=== PATIENT | female | born 1945 | race American Indian/Alaskan Native ===

== ENCOUNTER 2019-07-11 18:08 | Inpatient (IN) | payer MEDICARE ==
--- NOTE | 2019-07-11 19:40 | Emergency Department Report ---
ED General Adult HPI - General Chief complaint: Medical Clearance Stated complaint: DIALYSIS FAILED/DOC SENT Time Seen by Provider: 07/11/19 19:39 Source: patient Mode of arrival: Ambulatory Limitations: No Limitations - History of Present Illness Initial comments: 73 y.o. female with a history of end-stage renal disease presents with complaint that her dialysis fistula is not working. Patient was seen in dialysis Center and Dr. Castillo with nephrology was consulted. Dr. Hernandez with Vascular Surgery also evaluated the patient and patient will have surgical procedure to improve her dialysis access tomorrow morning. Patient states she had 2-1/2 hours of dialysis prior to her fistula not working. Patient currently has no chest pain or shortness of breath. Patient denies any nausea or vomiting. - Related Data Home Medications Medication Instructions Recorded Confirmed Last Taken Acetaminophen [Shake That Ache] 500 mg PO PRN 03/13/16 03/13/16 Unknown Aspirin [Adult Low Dose Aspirin EC] 81 mg PO 03/13/16 Unknown AtorvaSTATin [Lipitor] 10 mg PO HS 03/13/16 03/13/16 Unknown Carvedilol [Coreg] 25 mg PO BID 03/13/16 03/13/16 Unknown Cholecalciferol (Vitamin D3) 3,000 unit PO DAILY 03/13/16 03/13/16 Unknown [Vitamin D3] Clopidogrel [Plavix] 75 mg PO QDAY 03/13/16 03/13/16 Unknown Folic Acid [Folvite] 1 mg PO DAILY 03/13/16 03/13/16 Unknown Insulin Glargine,Hum.rec.anlog 20 units SUB-Q HS 03/13/16 03/13/16 Unknown [Lantus Solostar] Insulin Lispro [Humalog Kwikpen] 14 units SUB-Q ACHS 03/13/16 03/13/16 Unknown Multivit-Min/Iron Fum/Folic AC 1 PO DAILY 03/13/16 Unknown [Mlxjo-Zhzwynv-Tayrhtav Tablet] Previous Rx's Medication Instructions Recorded Last Taken Type amLODIPine [Norvasc] 5 mg PO DAILY #30 tab 03/15/16 Unknown Rx Allergies Allergy/AdvReac Type Severity Reaction Status Date / Time codeine AdvReac Hives Verified 03/12/16 21:45 ED Review of Systems ROS: Stated complaint: DIALYSIS FAILED/DOC SENT Other details as noted in HPI Constitutional: denies: chills, fever Eyes: denies: eye pain, eye discharge, vision change ENT: denies: ear pain, throat pain Respiratory: denies: cough, shortness of breath, wheezing Cardiovascular: denies: chest pain, palpitations Endocrine: no symptoms reported Gastrointestinal: denies: abdominal pain, nausea, diarrhea Genitourinary: denies: urgency, dysuria, discharge Musculoskeletal: denies: back pain, joint swelling, arthralgia Skin: denies: rash, lesions Neurological: denies: headache, weakness, paresthesias Psychiatric: denies: anxiety, depression Hematological/Lymphatic: denies: easy bleeding, easy bruising ED Past Medical Hx - Past Medical History Hx Hypertension: Yes Hx CVA: Yes (x 3) Hx Diabetes: Yes Hx Arthritis: Yes - Surgical History Past Surgical History?: Yes Additional Surgical History: hysterectomy, brain surgery for brain bleed - Social History Smoking Status: Never Smoker - Medications Home Medications: Home Medications Medication Instructions Recorded Confirmed Last Taken Type Acetaminophen [Shake That Ache] 500 mg PO PRN 03/13/16 03/13/16 Unknown History Aspirin [Adult Low Dose Aspirin EC] 81 mg PO 03/13/16 Unknown History AtorvaSTATin [Lipitor] 10 mg PO HS 03/13/16 03/13/16 Unknown History Carvedilol [Coreg] 25 mg PO BID 03/13/16 03/13/16 Unknown History Cholecalciferol (Vitamin D3) 3,000 unit PO DAILY 03/13/16 03/13/16 Unknown History [Vitamin D3] Clopidogrel [Plavix] 75 mg PO QDAY 03/13/16 03/13/16 Unknown History Folic Acid [Folvite] 1 mg PO DAILY 03/13/16 03/13/16 Unknown History Insulin Glargine,Hum.rec.anlog 20 units SUB-Q HS 03/13/16 03/13/16 Unknown History [Lantus Solostar] Insulin Lispro [Humalog Kwikpen] 14 units SUB-Q ACHS 03/13/16 03/13/16 Unknown History Multivit-Min/Iron Fum/Folic AC 1 PO DAILY 03/13/16 Unknown History [Ynvhr-Lwzjmav-Rielkidz Tablet] amLODIPine [Norvasc] 5 mg PO DAILY #30 tab 03/15/16 Unknown Rx ED Physical Exam - General Limitations: No Limitations General appearance: alert, in no apparent distress - Head Head exam: Present: atraumatic, normocephalic - Eye Eye exam: Present: normal appearance - ENT ENT exam: Present: mucous membranes moist - Neck Neck exam: Present: normal inspection - Respiratory Respiratory exam: Present: normal lung sounds bilaterally. Absent: respiratory distress - Cardiovascular Cardiovascular Exam: Present: regular rate, normal rhythm, other (auscultated thrill in left upper extremity). Absent: systolic murmur, diastolic murmur, rubs, gallop - GI/Abdominal GI/Abdominal exam: Present: soft, normal bowel sounds - Extremities Exam Extremities exam: Present: normal inspection - Back Exam Back exam: Present: normal inspection - Neurological Exam Neurological exam: Present: alert, oriented X3 - Psychiatric Psychiatric exam: Present: normal affect, normal mood - Skin Skin exam: Present: warm, dry, intact, normal color. Absent: rash ED Course Vital Signs 07/11/19 07/11/19 07/11/19 18:10 19:42 20:00 Temperature 98.8 F 97.7 F Pulse Rate 83 73 73 Respiratory 18 15 18 Rate Blood Pressure 91/50 153/79 Blood Pressure 156/71 [Right] O2 Sat by Pulse 99 99 99 Oximetry 07/11/19 20:30 Temperature Pulse Rate 72 Respiratory 16 Rate Blood Pressure 153/79 Blood Pressure [Right] O2 Sat by Pulse 99 Oximetry ED Medical Decision Making - Lab Data Result diagrams: 07/11/19 20:29 07/11/19 20:29 - Medical Decision Making Patient to be admitted to the hospital service with consultation from Dr. Hernandez with Vascular surgery and with nephrology. patient currently is asymptomatic. - Differential Diagnosis hyperkalemia; fistula malfunction; anemia; electrolyte abnormality Critical care attestation.: If time is entered above; I have spent that time in minutes in the direct care of this critically ill patient, excluding procedure time. ED Disposition Clinical Impression: Dialysis AV fistula malfunction, ESRD (end stage renal disease), Hypertension Disposition: - TO HOME OR SELFCARE Is pt being admited?: Yes Does the pt Need Aspirin: No Condition: Stable Instructions: Hypertension (ED) Time of Disposition: 21:46 Print Language: POLISH
[2019-07-11 20:55] LABS: Hematocrit 34.6 % (30.3-42.9); Hemoglobin 11.4 gm/dl (10.1-14.3); Mean Corpuscular HGB Conc 33 % (30-34); Mean Corpuscular Volume 90 fl (79-97); Platelet Count 199 K/mm3 (140-440); Red Blood Count 3.83 M/mm3 (3.65-5.03); Red Cell Distribution Width 15.4 % (13.2-15.2)
[2019-07-11 21:04] LABS: INR 1.03 (0.87-1.13)
[2019-07-11 21:05] LABS: Partial Thromboplastin Time 31.6 Sec. (24.2-36.6)
[2019-07-11 21:09] LABS: Albumin 3.1 g/dL (3.9-5); Calcium 8.9 mg/dL (8.4-10.2)
--- NOTE | 2019-07-11 21:35 | Event Note ---
Date: 07/11/19 patient with malfunctioning left arm av access plan for left arm fistulogram tomorrow PRAVEEN GONZALEZ
[2019-07-11] MEDS ORDERED: ZOFRAN IV PRN (21:50)
[2019-07-11] MEDS ORDERED: TYLENOL PO PRN (21:50)
[2019-07-11] MEDS ORDERED: SODIUM CHLORIDE FLUSH SYRINGE 10 ML IV PRN (21:50)
--- NOTE | 2019-07-11 21:59 | History and Physical Report ---
History of Present Illness Date of examination: 07/11/19 Date of admission: 07/11/19 Chief complaint: HD fistula disfunction History of present illness: Pt is a 73 year old female with PMHx of ESRD on HD,CVA x3, DM type 2, HTN, HDL, OA who presents to the ER with complaint of HD fistula malfunction. Pt states that she went to hemodialysis today at the Center, she was unable to complete her treatment because her fistula was not working, pt states that she saw the services clerk (Dr Castillo) who recommended that she comes to the ER for evaluation with the vascular surgery (Dr. Hernandez) for fistula malfunction. Pt denies any acute symptoms, she denies chest pain, denies SOB, denies palpitation, denies lower extremities swelling, denies headache or dizziness. Pt was seen in the ER and admitted for graft revascularization by vascular surgery. Past History Past Medical History: diabetes, hypertension, hyperlipidemia, stroke (x3), other (arthitis) Past Surgical History: hysterectomy, Other (brain surgery) Social history: no significant social history Family history: no significant family history Medications and Allergies Allergies Allergy/AdvReac Type Severity Reaction Status Date / Time codeine AdvReac Hives Verified 03/12/16 21:45 Home Medications Medication Instructions Recorded Confirmed Last Taken Type Acetaminophen [Shake That Ache] 500 mg PO Q6H PRN 03/13/16 07/12/19 Unknown History Aspirin [Adult Low Dose Aspirin EC] 81 mg PO QAM 03/13/16 07/12/19 Unknown History AtorvaSTATin [Lipitor] 10 mg PO HS 03/13/16 07/12/19 Unknown History Carvedilol [Coreg] 25 mg PO BID 03/13/16 07/12/19 Unknown History Insulin Glargine,Hum.rec.anlog 7 units SUB-Q HS 03/13/16 07/12/19 Unknown History [Lantus Solostar] Hydralazine HCl 50 mg PO QPM 07/12/19 07/12/19 Unknown History Lisinopril [Zestril TAB] 10 mg PO QDAY 07/12/19 07/12/19 Unknown History Promethazine [Phenergan] 25 mg PO Q8HR PRN 07/12/19 07/12/19 Unknown History hydrOXYzine HCL [Atarax] 25 mg PO Q6HR PRN 07/12/19 07/12/19 Unknown History Exam - Constitutional Vitals: Temp Pulse Resp BP Pulse Ox 97.7 F 73 16 151/88 100 07/11/19 19:42 07/11/19 21:30 07/11/19 21:30 07/11/19 21:30 07/11/19 21:30 General appearance: Present: no acute distress - EENT Eyes: Present: EOM intact ENT: hearing intact - Neck Neck: Present: normal ROM - Respiratory Respiratory: bilateral: CTA - Cardiovascular Rhythm: regular - Extremities Extremities: no ischemia Peripheral Pulses: within normal limits - Abdominal General gastrointestinal: Present: deferred Female genitourinary: Present: deferred - Rectal Rectal Exam: deferred - Integumentary Integumentary: Present: warm, dry - Musculoskeletal Musculoskeletal: strength equal bilaterally - Psychiatric Psychiatric: cooperative - Neurologic Neurologic: moves all extremities Results - Labs CBC & Chem 7: 07/11/19 20:29 07/11/19 20:29 Labs: Laboratory Last Values WBC 4.3 K/mm3 (4.5-11.0) L 07/11/19 20:29 RBC 3.83 M/mm3 (3.65-5.03) 07/11/19 20:29 Hgb 11.4 gm/dl (10.1-14.3) 07/11/19 20:29 Hct 34.6 % (30.3-42.9) 07/11/19 20:29 MCV 90 fl (79-97) 07/11/19 20:29 MCH 30 pg (28-32) 07/11/19 20:29 MCHC 33 % (30-34) 07/11/19 20:29 RDW 15.4 % (13.2-15.2) H 07/11/19 20:29 Plt Count 199 K/mm3 (140-440) 07/11/19 20:29 PT 13.2 Sec. (12.2-14.9) 07/11/19 20:29 INR 1.03 (0.87-1.13) 07/11/19 20:29 APTT 31.6 Sec. (24.2-36.6) 07/11/19 20:29 Sodium 137 mmol/L (137-145) 07/11/19 20:29 Potassium 4.9 mmol/L (3.6-5.0) 07/11/19 20:29 Chloride 98.0 mmol/L (98-107) 07/11/19 20:29 Carbon Dioxide 25 mmol/L (22-30) 07/11/19 20:29 Anion Gap 19 mmol/L 07/11/19 20:29 BUN 30 mg/dL (7-17) H 07/11/19 20:29 Creatinine 6.0 mg/dL (0.7-1.2) H 07/11/19 20:29 Estimated GFR 8 ml/min 07/11/19 20:29 BUN/Creatinine Ratio 5 % 07/11/19 20:29 Glucose 88 mg/dL (65-100) 07/11/19 20:29 Calcium 8.9 mg/dL (8.4-10.2) 07/11/19 20:29 Total Bilirubin 0.40 mg/dL (0.1-1.2) 07/11/19 20:29 AST 12 units/L (5-40) 07/11/19 20:29 ALT 6 units/L (7-56) L 07/11/19 20:29 Alkaline Phosphatase 72 units/L (35-129) 07/11/19 20:29 Total Protein 6.9 g/dL (6.3-8.2) 07/11/19 20:29 Albumin 3.1 g/dL (3.9-5) L 07/11/19 20:29 Albumin/Globulin Ratio 0.8 % 07/11/19 20:29 Assessment and Plan Assessment and plan: 1. HD malfunction 2. ESRD om HD 3. Anemia (due to CKD) 4. Hyperkalemia 5. HTN 6. DM type 2 7. Hyperlipidemia 8. H/o stroke x 3 9. Ostearthritis Plan: Admit to medtele Monitor electrolytes Consult nephrology for HD management Consult vascular for HD malfunction Accu check ACHS with insulin per sliding scale Keep NPO post MN Resume home meds when able to take PO further plan in am HD most likely after the procedure Advance Directives: Yes Plan of care discussed with patient/family: Yes
[2019-07-11] MEDS ORDERED: HEPARIN SUB-Q SCH (22:00)
[2019-07-11] MEDS: SODIUM CHLORIDE FLUSH SYRINGE 10 ML IV SCH (22:49)
[2019-07-12] MEDS ORDERED: PHENERGAN PO PRN (09:01)
[2019-07-12] MEDS ORDERED: ATARAX PO PRN (09:01)
[2019-07-12] MEDS ORDERED: TYLENOL PO PRN (09:01)
[2019-07-12] MEDS: SODIUM CHLORIDE FLUSH SYRINGE 10 ML IV SCH ×2 (09:20→23:45)
[2019-07-12] MEDS: HALFPRIN EC PO SCH (09:20)
[2019-07-12] MEDS: ZESTRIL PO SCH (09:21)
[2019-07-12] MEDS: COREG PO SCH ×2 (09:21→23:40)
[2019-07-12 11:22] LABS: Hepatitis B Surface Antigen Non-Reactive (Negative); Hepatitis C Virus Antibody Non-Reactive (NonReactive)
[2019-07-12] MEDS ORDERED: HEPARIN/NS 5000 UNIT/500ML(CATH LAB) 1,500 ML IR ONE (11:51)
[2019-07-12] MEDS ORDERED: HEPARIN 10,000 UNITS/10 ML ONE ×2 (11:51→15:41)
[2019-07-12] MEDS ORDERED: XYLOCAINE 2% INFILTRATI ONE (11:51)
[2019-07-12] MEDS ORDERED: NACL 0.9% 500 ML 500 ML ONE (11:52)
[2019-07-12] MEDS ORDERED: AFLURIA QUAD 2019-2020 (3YR UP) IM ONE (12:00)
[2019-07-12] MEDS ORDERED: D50W (25GM) Syringe IV ONE (12:00)
--- NOTE | 2019-07-12 12:02 | Consultation ---
History of Present Illness - History of Present Illness My assessment and plan are as follows End-stage renal disease: Patient will continue with hemodialysis treatment on scheduled as tolerated, monitor dialysis related labs, currently her hemoglobin is 11.4 potassium 4.9B UN 30 creatinine 6.0 calcium is 8.9, she will need hemod ialysis treatment today afterfistulogram Has had issues with fistula not working yesterday during dialysis, patient does need fistulogram subsequent to which she will need to get hemodialysis treatment she is currently being dialyzed at [facility] Anemia and end-stage renal disease: To monitor and follow, erythropoietin as required goal hemoglobin dialysis patients usually occurring 10 and 12, we will follow Secondary hyperparathyroidism: Monitor phosphorus and PTH periodically and adjust binders as needed Diet and nutrition: Fluid restriction 1200 mL per day, high-protein diet may benefit from nutrition consultation , patient is protein intake should be 1.5 g per KG body weight Hypertension and volume continue to monitor, educated about fluid restriction sodium restriction Patient does exhibit good understanding of the renal related issues A long discussion yesterday with patient's daughter over the phone plan of care has been discussed and answered Patient has been adequately counseled and educated regarding all the renal related issues Renal care plan was discussed with patient Prognosis remains guarded at this time We'll continue to follow and make recommendation from renal standpoint She have any questions please feel free to contact me at [phone] Narayan Castillo M.D. [facility], [address] [place] [address]. [place] [address] History of presenting illness 73-year-old female who has recently moved here from [place] and is currently going for dialysis at [facility] where I saw her yesterday, patient's fistula but not usable her venous pressures were markedly elevated for which she was advised to come here to the hospital and I have discussed the case with vascular surgery already for fistulogram and angioplasty possibly subsequent to which patient will receive hemodialysis treatment Past medical history significant for End-stage renal disease Anemia and end-stage renal disease Secondary hyperparathyroidism Current allergies: Codeine Home medication present medication: Reviewed Social history, family history: Reviewed Review of systems: Positive for malfunctioning fistula patient has not had any evaluation of fistula for last 2 years Complex of any shortness of breath chest pain pressure Physical examination: General: No acute distress HEENT: Oral mucosa moist no icterus, no facial swelling Neck: Supple no thyromegaly no lymphadenopathy no JVD Chest: Clear to auscultation no crackles rales or wheezes Heart: Regular rate and rhythm S1-S2 heard no S3-S4 Abdomen: Soft nontender no organomegaly no masses palpable no renal bruit no suprapubic masses no CVA tenderness Dermatology: No skin rashes noted Extremity: Less than 1+ peripheral edema, dry skin no petechial rashes fistula appears to be engorged there is evidence of sharp bruit Musculoskeletal: No joint effusion noted in knee and ankle area Psych: No evidence of agitation and aggression noted Neurological: Alert awake follows commands no tremors no myoclonus Back: No CVA tenderness Past History Past Medical History: diabetes, hypertension, hyperlipidemia, stroke (x3), other (arthitis) Past Surgical History: hysterectomy, Other (brain surgery) Social history: no significant social history Family history: no significant family history Medications and Allergies Allergies Allergy/AdvReac Type Severity Reaction Status Date / Time codeine AdvReac Hives Verified 03/12/16 21:45 Home Medications Medication Instructions Recorded Confirmed Last Taken Type Acetaminophen [Shake That Ache] 500 mg PO Q6H PRN 03/13/16 07/12/19 Unknown History Aspirin [Adult Low Dose Aspirin EC] 81 mg PO QAM 03/13/16 07/12/19 Unknown Hi story AtorvaSTATin [Lipitor] 10 mg PO HS 03/13/16 07/12/19 Unknown History Carvedilol [Coreg] 25 mg PO BID 03/13/16 07/12/19 Unknown History Insulin Glargine,Hum.rec.anlog 7 units SUB-Q HS 03/13/16 07/12/19 Unknown History [Lantus Solostar] Hydralazine HCl 50 mg PO QPM 07/12/19 07/12/19 Unknown History Lisinopril [Zestril TAB] 10 mg PO QDAY 07/12/19 07/12/19 Unknown History Promethazine [Phenergan] 25 mg PO Q8HR PRN 07/12/19 07/12/19 Unknown History hydrOXYzine HCL [Atarax] 25 mg PO Q6HR PRN 07/12/19 07/12/19 Unknown History Active Meds: Active Medications Acetaminophen (Tylenol) 650 mg PO Q4H PRN PRN Reason: Pain MILD(1-3)/Fever >100.5/[place] Acetaminophen (Tylenol) 500 mg PO Q6H PRN PRN Reason: Pain , Severe (7-10) Aspirin (Halfprin Ec) 81 mg PO QAM [facility] Last Admin: 07/12/19 09:20 Dose: 81 mg Documented by: Atorvastatin Calcium (Lipitor) 10 mg PO HS [facility] Carvedilol (Coreg) 25 mg PO BID [facility] Last Admin: 07/12/19 09:21 Dose: 25 mg Documented by: Hydroxyzine HCl (Atarax) 25 mg PO Q6H PRN PRN Reason: Itching Insulin Glargine (Lantus) 7 units SUB-Q QHS [facility] Lisinopril (Zestril) 10 mg PO QDAY [facility] Last Admin: 07/12/19 09:21 Dose: Not Given Documented by: Ondansetron HCl (Zofran) 4 mg IV Q8H PRN PRN Reason: Nausea And Vomiting Promethazine HCl (Phenergan) 25 mg PO Q8H PRN PRN Reason: Nausea Sodium Chloride (Sodium Chloride Flush Syringe 10 Ml) 10 ml IV BID [facility] Last Admin: 07/12/19 09:20 Dose: 10 ml Documented by: Sodium Chloride (Sodium Chloride Flush Syringe 10 Ml) 10 ml IV PRN PRN PRN Reason: LINE FLUSH Exam - Vital Signs Vital signs: Vital Signs Temp Pulse Resp BP Pulse Ox 98.8 F 83 18 91/50 99 07/11/19 18:10 07/11/19 18:10 07/11/19 18:10 07/11/19 18:10 07/11/19 18:10 Results - Lab Results 07/11/19 20:29 07/11/19 20:29 Most recent lab results Calcium 8.9 mg/dL (8.4-10.2) 07/11/19 20:29
[2019-07-12] MEDS ORDERED: VERSED ONE ×2 (12:10→18:19)
[2019-07-12] MEDS ORDERED: SUBLIMAZE ONE (12:11)
--- NOTE | 2019-07-12 12:13 | Discharge Summary ---
Providers - Providers Date of Admission: 07/11/19 21:50 Date of discharge: 07/13/19 Attending physician: HUYEN KATE 07/11/19 21:12 Consult to Physician [CONS] Routine Comment: Consulting Provider: NADER CASTILLO Physician Instructions: Reason For Exam: dialysis 07/11/19 21:50 Consult to Physician [CONS] Routine Comment: Consulting Provider: GAMAL ROSENBERG Physician Instructions: Reason For Exam: HD cath disfuction Primary care physician: MOTOR SCOOTER REPAIRER Hospitalization Condition: Stable Hospital course: Pt is a 73 year old female with PMHx of ESRD on HD,CVA x3, DM type 2, HTN, HDL, OA who presents to the ER with complaint of HD fistula malfunction. Pt states that she went to hemodialysis today at the Center, she was unable to complete her treatment because her fistula was not working, pt states that she saw the head turbine operator (Dr Castillo) who recommended that she comes to the ER for evaluation with the vascular surgery (Dr. Rosenberg) for fistula malfunction. Pt denies any acute symptoms, she denies chest pain, denies SOB, denies palpitation, denies lower extremities swelling, denies headache or dizziness. Pt was seen in the ER and admitted for graft revascularization by vascular surgery. Discharge diagnosis: 1. HD fistulla malfunction 2. ESRD om HD 3. Anemia (due to CKD) 4. Hyperkalemia 5. HTN 6. DM type 2 7. Hyperlipidemia 8. H/o stroke x 3 9. Ostearthritis Disposition: - TO HOME OR SELFCARE Time spent for discharge: 34 minutes Core Measure Documentation - Palliative Care Palliative Care/ Comfort Measures: Not Applicable - Core Measures Any of the following diagnoses?: none Exam - Constitutional Vitals: Temp Pulse Resp BP Pulse Ox 98.5 F 83 18 124/50 97 07/12/19 07:46 07/12/19 09:21 07/12/19 07:46 07/12/19 09:21 07/12/19 07:46 Plan Activity: advance as tolerated Weight Bearing Status: Non-Weight Bearing Diet: renal Special Instructions: restrict fluid intake to (1.2 L per day), record daily weights, record daily BP diary Follow up with: UBALDO RODRIGEZ MD [Primary Care Provider] - 3-5 Days GAMAL ROSENBERG MD [Staff Physician] - 07/30/19 10:15 am
[2019-07-12] MEDS ORDERED: NACL 0.9% 100 ML IV PRN (12:30)
--- NOTE | 2019-07-12 13:10 | Post Operative Note ---
Pre-op diagnosis: ESRD Post-op diagnosis: same Findings: 80% stenosis of the cephalic arch, 70% stenosis of the left innominant vein Procedure: 1. Left arm diagnostic fistulogram and angioplasty 2. Left Innominant Vein Angioplasty 3. Moderate Sedation Anesthesia: MAC, local Surgeon: GAMAL ROSENBERG Estimated blood loss: minimal Pathology: none Condition: stable Disposition: floor
--- NOTE | 2019-07-12 13:50 | Operative Report ---
STAFF SURGEON: Dr. Girish Hernandez. PREOPERATIVE DIAGNOSIS: End-stage renal disease. POSTOPERATIVE DIAGNOSIS: End-stage renal disease. PROCEDURE PERFORMED: 1. Left arm diagnostic fistulogram and angioplasty. 2. Left innominate vein angioplasty. 3. Monitored sedation. COMPLICATIONS: None. ESTIMATED BLOOD LOSS: Less than 10 mL. ANESTHESIA: Local MAC. ANGIOGRAPHIC FINDINGS: The patient had a patent brachiocephalic AV fistula until the cephalic arch in which there was an 80% stenosis noted. There was also a 70% stenosis noted in the left innominate vein. INDICATIONS FOR PROCEDURE: This is a 73-year-old female with end-stage renal disease, on hemodialysis via left arm AV fistula having issues with elevated venous pressures. Therefore, vascular consultation was obtained for evaluation and intervention. The patient was explained the risks, benefits, and alternatives of procedure, and expressed understanding and wished to proceed. DESCRIPTION OF PROCEDURE: After appropriate consent was obtained, the patient was brought back to the microbiology lab analyst, placed on table in supine position with left arm extended. Left arm was prepped and draped in the usual sterile fashion with ChloraPrep. Appropriate timeout was performed indicating correct patient, procedure, and site of procedure. Then, we began the intervention by obtaining percutaneous access of the AV fistula using a micropuncture technique. Once we obtained access, the needle was exchanged for a micropuncture sheath using Seldinger technique. We then proceeded to perform a series of diagnostic imaging of the left upper extremity, which demonstrated the findings noted above. With that, we then proceeded to place a Bentson wire through the posterior stiff J-wire, and through the micropuncture sheath, and exchanged for a 7-Irish sheath. A vertebral catheter was then placed over the J-wire and a J-wire was removed and the Bentson wire was then advanced into the central venous system. The catheter was then advanced to the central venous system and then a series of diagnostic imaging of the central venous system was performed to better characterize the stenosis noted in the innominate vein. With that, the Bentson wire was replaced. We then proceeded to take a 7 x 4 [place] balloon and placed across the lesion in the cephalic arch and insufflated the profile and held for approximately 2 minutes. This was then taken down and removed. The completion angio was performed, which demonstrated less than 20% residual stenosis. We then took a 14 x 40 [place] balloon and placed across the lesion in the innominate vein, again insufflated the profile, and held for approximately 1 minute 45 seconds. This was then taken down and removed. The completion angio was performed demonstrating less than 20% residual stenosis. With this, Bentson wire was removed. The sheath was also removed and digital compression was held at the access site for hemostasis. Once we were satisfied with the hemostasis, appropriate dressing was placed. The patient tolerated the procedure well, emerged from the conscious sedation, and was sent to recovery in stable condition. JOB# [id number] N/NTS
--- NOTE | 2019-07-12 15:09 | Progress Note ---
Assessment and Plan 1. HD fistulla malfunction 2. ESRD om HD 3. Anemia (due to CKD) 4. Hyperkalemia, stable 5. HTN 6. DM type 2 7. Hyperlipidemia 8. H/o stroke x 3 9. Ostearthritis - Patient admitted for dialysis fistula malfunction - Status post fistulogram today with angioplasty but history was still not working for dialysis - Plan to place a PermCath for dialysis for now - Monitor BMP, treat hyperkalemia as needed should improve with dialysis - Continue appropriate home medications -DVT prophylaxis, supportive care - Discussed plan of care with the family members Physical exam: GENERAL: well-developed and well-nourished elderly -[place]ron[place] female lying on bed appeared to be in no discomfort. HEENT: Normocephalic. Atraumatic. No conjunctival congestion or icterus. Patient has moist mucous membranes. NECK: Supple. Trachea midline. CHEST/LUNGS: Clear to auscultated bilaterally, breathing nonlabored. No wheezes crackles or rhonchi. HEART/CARDIOVASCULAR: Regular in rate and rhythm. S1 and S2 positive. ABDOMEN: Abdomen is soft, nontender. Patient has normal bowel sounds. SKIN: There is no rash. Warm and dry. NEURO: No focal motor deficit. Follows command. MUSCULOSKELETAL: No joint effusion or tenderness. EXTRIMITY: No edema, no cyanosis or clubbing. PSYCH: Cooperative. Subjective Date of service: 07/12/19 Interval history: Patient seen and examined. Medical records and medication list reviewed. No acute event overnight noted by the RN. Patient denies any chest pain or difficulty breathing. Patient is tolerating diet. Discussed plan of care at bedside with patient. Objective - Constitutional Vitals: Vital Signs - 12hr 07/12/19 07/12/19 07/12/19 04:20 07:46 09:21 Temperature 98.4 F 98.5 F Pulse Rate 71 83 83 Respiratory 18 18 Rate Blood Pressure 188/78 124/50 124/50 O2 Sat by Pulse 99 97 Oximetry - Labs CBC & Chem 7: 07/11/19 20:29 07/13/19 04:10 Labs: Abnormal lab results 07/11/19 07/11/19 07/12/19 Range/Units 20:29 20:29 11:30 WBC 4.3 L (4.5-11.0) K/mm3 RDW 15.4 H (13.2-15.2) % BUN 30 H (7-17) mg/dL Creatinine 6.0 H (0.7-1.2) mg/dL POC Glucose 69 L (70-105) ALT 6 L (7-56) units/L Albumin 3.1 L (3.9-5) g/dL 07/12/19 Range/Units 12:04 WBC (4.5-11.0) K/mm3 RDW (13.2-15.2) % BUN (7-17) mg/dL Creatinine (0.7-1.2) mg/dL POC Glucose 113 H (70-105) ALT (7-56) units/L Albumin (3.9-5) g/dL
[2019-07-12] MEDS ORDERED: HEPARIN/NS 5000 UNIT/500ML(CATH LAB) 500 ML IR ONE ×2 (15:41→18:20)
[2019-07-12] MEDS ORDERED: XYLOCAINE 1%/ EPI 1:100,000 INFILTRATI ONE (15:41)
[2019-07-12] MEDS ORDERED: ANCEF/STERILE WATER 2 GM/20 ML 0 GM/0 ML SYRINGE IV ONE (15:42)
[2019-07-12] MEDS ORDERED: NACL 0.9% 250ML 0 ML ONE (15:42)
[2019-07-12] MEDS ORDERED: NACL 0.9% 250ML 250 ML ONE (18:20)
[2019-07-12] MEDS: SUBLIMAZE ONE ×2 (18:44→18:53)
[2019-07-12] MEDS: XYLOCAINE 1%/ EPI 1:100,000 INFILTRATI ONE ×2 (18:48→18:51)
[2019-07-12] MEDS: HEPARIN 10,000 UNITS/10 ML ONE ×2 (18:57→18:58)
--- NOTE | 2019-07-12 19:10 | Post Operative Note ---
Pre-op diagnosis: ESRD Post-op diagnosis: same Procedure: Right IJ Permcath Insertion Anesthesia: MAC, local Surgeon: GAMAL ROSENBERG Estimated blood loss: minimal Pathology: none Condition: stable Disposition: floor
--- NOTE | 2019-07-12 19:29 | Operative Report ---
STAFF SURGEON: Dr. Girish Hernandez. PREOPERATIVE DIAGNOSIS: End-stage renal disease. POSTOPERATIVE DIAGNOSIS: End-stage renal disease. PROCEDURE PERFORMED: Right IJ PermCath insertion. COMPLICATIONS: None. ESTIMATED BLOOD LOSS: Less than 10 mL. ANESTHESIA: Local MAC. INDICATIONS FOR PROCEDURE: This is a 73-year-old female with end-stage renal disease who was recently taken to the slabber light for a left arm fistulogram with intervention. The patient was unable to undergo adequate dialysis and therefore, the patient is now returning for a PermCath insertion. The patient was explained the risks, benefits, alternatives of procedure and expressed understanding and wished to proceed. DESCRIPTION OF PROCEDURE: The appropriate consent was obtained. The patient was brought back to the slabber light, placed on table in supine position. The right neck and chest were prepped and draped in the usual sterile fashion with ChloraPrep. Appropriate time-out performed indicating correct patient, procedure, and site of procedure. We then began the intervention by obtaining percutaneous access of the right internal jugular vein using micropuncture technique and ultrasound guidance. Once we obtained access, needle was exchanged for a micropuncture sheath using Seldinger technique, the stiff J-wire was then placed into the inferior vena cava. A stab incision was made on the anterior chest wall and then proceeded to make a subcutaneous tunnel bringing through a 23 cm straight PermCath. The access site was then serially dilated appropriately. Then, a sheath and dilator was placed over the wire into the SVC and the wire and sheath were removed. A catheter was placed through the peel-away sheath with the tip of the catheter at the SVC right atrial junction. Pillow sheath was removed. Both lumens were bled appropriately and were flushed with heparinized saline. Appropriate amount of heparin was placed in each port. Access site was then closed with deep subcutaneous layer with a 3-0 Vicryl and the skin was approximated with 3-0 nylon. The catheter exit site was sutured in place with a 3-0 nylon. Appropriate dressing was placed. The patient tolerated the procedure well emerged from the conscious sedation and was sent to recovery in stable condition. JOB# [id number] VCN/NTS
[2019-07-12] MEDS ORDERED: LANTUS SUB-Q SCH (22:00)
[2019-07-12] MEDS ORDERED: INSULIN GLARGINE HUM REC ANLOG 7 UNIT SUB-Q SCH (22:00)
[2019-07-12] MEDS: NORCO 5/325 PO PRN (23:42)
[2019-07-13 05:40] LABS: Calcium 8.4 mg/dL (8.4-10.2)
[2019-07-13] MEDS: NORCO 5/325 PO PRN ×3 (05:51→15:02)
[2019-07-13] MEDS: SODIUM CHLORIDE FLUSH SYRINGE 10 ML IV SCH (10:31)
[2019-07-13] MEDS: ZESTRIL PO SCH (10:31)
[2019-07-13] MEDS: COREG PO SCH (10:31)
[2019-07-13] MEDS: HALFPRIN EC PO SCH (10:31)
--- NOTE | 2019-07-13 11:21 | Progress Note ---
Subjective Interval history: Patient was seen today for follow-up on multiple renal related issues Events of this hospitalization were noted Interdisciplinary notes were also reviewed Vitals intake output medications were reviewed Past medical history: Reviewed Family, social history: Reviewed Allergies: Reviewed Physical examination General: No acute distress Vitals: Reviewed HEENT: Oral mucosa moist no icterus Neck: Supple no thyromegaly nodular mass or JVD Chest: Clear to auscultation anteriorly Heart: Regular rate and rhythm S1-S2 heard no S3-S4 Abdomen: Soft nontender no suprapubic masses no organomegaly Extremity: Dry skin less than 1+ edema Psych: No evidence of any agitation and aggression noted Derm: No petechial rash Assessment and plan: malfunctioning fistula status post intervention did not work Current dialysis access is a permacath Patient can currently continue with hemodialysis with permacath She will need to follow-up with vascular surgery in outpatient setting Had a long discussion with patient's 2 daughters yesterday at length , discussed about diet and lifestyle, fluid management, sodium restriction, proper access monitoring All renal related issues were discussed with the patient, patient does exhibit good understanding, lab results were also discussed with patient in simple [place] Prognosis: Guarded We'll continue to follow and make recommendation from renal standpoint Objective - Vital Signs Vital signs: Vital Signs - 12hr 07/12/19 07/12/19 07/13/19 23:40 23:59 03:28 Temperature 97.5 F L Pulse Rate 86 73 81 Respiratory 16 Rate Blood Pressure 124/62 Blood Pressure 124/62 [Right] O2 Sat by Pulse Oximetry 07/13/19 07/13/19 07/13/19 05:38 07:32 08:31 Temperature 98.1 F 98.6 F Pulse Rate 112 H 71 74 Respiratory 22 20 Rate Blood Pressure 105/63 106/49 Blood Pressure [Right] O2 Sat by Pulse 97 97 Oximetry - Lab 07/11/19 20:29 07/13/19 04:10 Most recent lab results Calcium 8.4 mg/dL (8.4-10.2) 07/13/19 04:10 Medications & Allergies - Medications Allergies/Adverse Reactions: Allergies codeine Adverse Reaction (Verified 03/12/16 21:45) Hives Home Medications: Home Medications Medication Instructions Recorded Confirmed Last Taken Type Acetaminophen [Shake That Ache] 500 mg PO Q6H PRN 03/13/16 07/12/19 Unknown History Aspirin [Adult Low Dose Aspirin EC] 81 mg PO QAM 03/13/16 07/12/19 Unknown History AtorvaSTATin [Lipitor] 10 mg PO HS 03/13/16 07/12/19 Unknown History Carvedilol [Coreg] 25 mg PO BID 03/13/16 07/12/19 Unknown History Insulin Glargine,Hum.rec.anlog 7 units SUB-Q HS 03/13/16 07/12/19 Unknown History [Lantus Solostar] Hydralazine HCl 50 mg PO QPM 07/12/19 07/12/19 Unknown History Lisinopril [Zestril TAB] 10 mg PO QDAY 07/12/19 07/12/19 Unknown History Promethazine [Phenergan] 25 mg PO Q8HR PRN 07/12/19 07/12/19 Unknown History hydrOXYzine HCL [Atarax] 25 mg PO Q6HR PRN 07/12/19 07/12/19 Unknown History Active Medications: Generic Name Dose Route Start Last Admin Trade Name Freq PRN Reason Stop Dose Admin Acetaminophen 650 mg 07/11/19 21:50 Tylenol PO Q4H PRN Pain MILD(1-3)/Fever >100.5/[place] Acetaminophen 500 mg 07/12/19 09:01 Tylenol PO Q6H PRN Pain , Severe (7-10) Acetaminophen/Hydrocodone Bitart 1 each 07/12/19 23:31 07/13/19 10:31 [place] 5/325 PO 1 each Q4H PRN Administration Pain, Moderate (5-10) Aspirin 81 mg 07/12/19 10:00 07/13/19 10:31 Halfprin Ec PO 81 mg QAM ML Administration Atorvastatin Calcium 10 mg 07/12/19 22:00 07/12/19 23:42 Lipitor PO 10 mg HS ML Administration Carvedilol 25 mg 07/12/19 10:00 07/13/19 10:31 Coreg PO 25 mg BID ML Administration Hydroxyzine HCl 25 mg 07/12/19 09:01 Atarax PO Q6H PRN Itching Sodium Chloride 100 mls @ 999 mls/hr 07/12/19 12:30 Nacl 0.9% IV VERONIKA PRN Hypotension Insulin Glargine 7 units 07/12/19 22:00 07/12/19 23:45 Lantus SUB-Q 7 units QHS ML Administration Lisinopril 10 mg 07/12/19 10:00 07/13/19 10:31 Zestril PO Not Given QDAY ML Ondansetron HCl 4 mg 07/11/19 21:50 07/12/19 20:11 Zofran IV 4 mg Q8H PRN Administration Nausea And Vomiting Promethazine HCl 25 mg 07/12/19 09:01 Phenergan PO Q8H PRN Nausea Sodium Chloride 10 ml 07/11/19 22:00 07/13/19 10:31 Sodium Chloride Flush Syringe 10 Ml IV 10 ml BID ML Administration Sodium Chloride 10 ml 07/11/19 21:50 07/12/19 20:11 Sodium Chloride Flush Syringe 10 Ml IV 10 ml PRN PRN Administration LINE FLUSH
[2019-07-13] MEDS ORDERED: KIONEX PO NR (14:41)
[2019-07-13] MEDS ORDERED: NACL 0.9% 100 ML IV PRN (19:22)
[2019-07-13 21:37] VITALS: BP 165/75
== END 2019-07-13 22:00 | disposition home or self-care (01) | DRG 252 ==
LOC: ED 18:08 → 4A 21:50
PROVIDERS: ADMIT Internal Medicine; ATTEND Internal Medicine
PROC: 05743ZZ Dilation of Left Innominate Vein, Percutaneous Approach (ICD-10-PCS; principal; 2019-07-12)
PROC: 03783ZZ Dilation of Left Brachial Artery, Percutaneous Approach (ICD-10-PCS; 2019-07-12)
PROC: B51W1ZZ Fluoroscopy of Dialysis Shunt/Fistula using Low Osmolar Contrast (ICD-10-PCS; 2019-07-12)
PROC: 0JH63XZ Insertion of Tunneled Vascular Access Device into Chest Subcutaneous Tissue and Fascia, Percutaneous Approach (ICD-10-PCS; 2019-07-12)
PROC: 02HV33Z Insertion of Infusion Device into Superior Vena Cava, Percutaneous Approach (ICD-10-PCS; 2019-07-12)
PROC: 5A1D70Z Performance of Urinary Filtration, Intermittent, Less than 6 Hours Per Day (ICD-10-PCS; 2019-07-12)
PROC: 02HV33Z Insertion of Infusion Device into Superior Vena Cava, Percutaneous Approach (ICD-10-PCS; 2019-07-12)
PROC: B548ZZA Ultrasonography of Superior Vena Cava, Guidance (ICD-10-PCS; 2019-07-12)
PROC: 5A1D70Z Performance of Urinary Filtration, Intermittent, Less than 6 Hours Per Day (ICD-10-PCS; 2019-07-13)
DX: T82.590A Other mechanical complication of surgically created arteriovenous fistula, initial encounter (principal); N18.6 End stage renal disease; I12.0 Hypertensive chronic kidney disease with stage 5 chronic kidney disease or end stage renal disease; N25.81 Secondary hyperparathyroidism of renal origin; E11.22 Type 2 diabetes mellitus with diabetic chronic kidney disease; M19.90 Unspecified osteoarthritis, unspecified site; D63.1 Anemia in chronic kidney disease; E87.5 Hyperkalemia; E78.5 Hyperlipidemia, unspecified; Y83.2 Surgical operation with anastomosis, bypass or graft as the cause of abnormal reaction of the patient, or of later complication, without mention of misadventure at the time of the procedure; Y92.89 Other specified places as the place of occurrence of the external cause; Z99.2 Dependence on renal dialysis; Z88.5 Allergy status to narcotic agent; Z86.73 Personal history of transient ischemic attack (TIA), and cerebral infarction without residual deficits; Z90.710 Acquired absence of both cervix and uterus; Z79.82 Long term (current) use of aspirin; Z79.899 Other long term (current) drug therapy
CPT/HCPCS: 36415; 36558; 36902; 76937; 77001; 80048; 80053; 80074; 82962; 84132; 85027; 85610; 85730; 90686; 96374; 96375; G0378; A9270-GY; C1725; C1750; C1751; C1769; C1894; J0690; J1644; J1815; J2250; J2405; J3010; J7040; J7050; Q9967

== ENCOUNTER 2019-08-26 07:54 | Day surgery (SDC) | payer BC, MEDICARE ==
[~2019-08-26 07:54] MED LIST: ceFAZolin/STERILE WATER 2 GM/20 ML SYRINGE IV NR
[2019-08-26] MEDS ORDERED: SODIUM CHLORIDE 0.9% 1000 ML 1,000 ML IV SCH (09:00)
--- NOTE | 2019-08-26 09:24 | Anesthesia Consultation ---
Anesthesia Consult and Med Hx Date of service: 08/26/19 - Airway Anesthetic Teeth Evaluation: Edentulous ROM Head & Neck: Adequate Mental/Hyoid Distance: Adequate Mallampati Class: Class II Intubation Access Assessment: Good - Pre-Operative Health Status ASA Pre-Surgery Classification: ASA3 Proposed Anesthetic Plan: General - Pulmonary Hx Smoking: No Hx Sleep Apnea: No (ZEV PRE SCREEN LOW RISK) - Cardiovascular System Hx Hypertension: Yes (SINCE AGE 21 YRS OLD) Hx Coronary Artery Disease: Yes (Stents) Hx Heart Attack/AMI: No Hx Angina: No - Central Nervous System Hx Neuromuscular Disorder: Yes (Neuropathy) CVA: Yes (X 3- LAST ONE 2004- RT SIDED WEAKNESS) Hx Psychiatric Problems: Yes (ptsd) - Endocrine Hx End Stage Renal Disease: Yes (Last HD Monday) Hx Non-Insulin Dependent Diabetes: Yes - Hematic Hx Anemia: Yes - Other Systems Hx Cancer: No
[2019-08-26] MEDS ORDERED: fentaNYL 100 MCG/2 ML INJ IV PRN (09:25)
[2019-08-26] MEDS ORDERED: ONDANSETRON 4 MG/2 ML INJ IV PRN (09:25)
--- NOTE | 2019-08-26 09:25 | Anesthesia Day of Surgery ---
Anesthesia Day of Surgery - Day of Surgery Patient Examined: Yes Patient H&P Reviewed: Yes Patient is NPO: Yes Beta Blockers: Yes
[2019-08-26] MEDS ORDERED: MIDAZOLAM 2 MG/2 ML INJ IV SCH (09:30)
[2019-08-26] MEDS ORDERED: MIDAZOLAM 2 MG/2 ML INJ ONE (09:59)
[2019-08-26 10:13] LABS: Eosinophils # (Auto) 0.2 K/mm3 (0.0-0.4); Eosinophils % (Auto) 3.9 % (0.0-4.3); Hematocrit 35.6 % (30.3-42.9); Hemoglobin 11.6 gm/dl (10.1-14.3); Lymphocytes # (Auto) 0.9 K/mm3 (1.2-5.4); Lymphocytes % (Auto) 20.1 % (13.4-35.0); Mean Corpuscular HGB Conc 33 % (30-34); Mean Corpuscular Volume 94 fl (79-97); Monocytes # (Auto) 0.5 K/mm3 (0.0-0.8); Monocytes % (Auto) 11.5 % (0.0-7.3); Platelet Count 216 K/mm3 (140-440); Red Blood Count 3.79 M/mm3 (3.65-5.03)
[2019-08-26] MEDS ORDERED: HEPARIN 10,000 UNITS/10 ML VIAL ONE (10:20)
[2019-08-26] MEDS ORDERED: SODIUM CHLORIDE 0.9% 250ML 250 ML ONE (10:20)
[2019-08-26] MEDS ORDERED: GELATIN SPONGE SIZE 100 TP ONE (10:20)
[2019-08-26] MEDS ORDERED: THROMBIN (RECOMBINANT) 5,000 UNIT VIAL TP ONE (10:22)
[2019-08-26 10:26] LABS: Calcium 8.5 mg/dL (8.4-10.2)
[2019-08-26] MEDS ORDERED: PROPOFOL 200 MG/20 ML VIAL IV ONE (10:32)
[2019-08-26] MEDS ORDERED: fentaNYL 100 MCG/2 ML INJ ONE (10:32)
[2019-08-26] MEDS ORDERED: LIDOCAINE MPF (2%) 20 MG/1 ML VIAL 5 ML ONE (10:33)
[2019-08-26] MEDS ORDERED: HEPARIN 10,000 UNIT/1 ML VIAL ONE (11:19)
[2019-08-26 12:56] VITALS: BP 176/86
== END 2019-08-26 11:40 | disposition home or self-care (01) ==
LOC: OR 07:54
PROVIDERS: ATTEND Surgery Vascular Surgery
DX: T82.590A Other mechanical complication of surgically created arteriovenous fistula, initial encounter (principal); I12.0 Hypertensive chronic kidney disease with stage 5 chronic kidney disease or end stage renal disease; N18.6 End stage renal disease; E11.22 Type 2 diabetes mellitus with diabetic chronic kidney disease; E11.65 Type 2 diabetes mellitus with hyperglycemia; G62.9 Polyneuropathy, unspecified; E78.00 Pure hypercholesterolemia, unspecified; I25.10 Atherosclerotic heart disease of native coronary artery without angina pectoris; Z53.8 Procedure and treatment not carried out for other reasons; Z79.899 Other long term (current) drug therapy; Z88.8 Allergy status to other drugs, medicaments and biological substances; Z79.82 Long term (current) use of aspirin; Z98.42 Cataract extraction status, left eye; Z95.5 Presence of coronary angioplasty implant and graft; Z86.73 Personal history of transient ischemic attack (TIA), and cerebral infarction without residual deficits; Y83.9 Surgical procedure, unspecified as the cause of abnormal reaction of the patient, or of later complication, without mention of misadventure at the time of the procedure
CPT/HCPCS: 36415; 80048; 82803; 82962; 85025; A4649; J1644; J2250; J2704; J3010; J7030; J7050; J0690

== ENCOUNTER 2019-08-30 08:08 | Day surgery (SDC) | payer BC, MEDICARE ==
[2019-08-30] MEDS ORDERED: SODIUM CHLORIDE 0.9% 1000 ML 1,000 ML ONE (09:09)
[2019-08-30] MEDS ORDERED: SODIUM CHLORIDE 0.9% 1000 ML 1,000 ML IV SCH (09:15)
--- NOTE | 2019-08-30 09:44 | Anesthesia Day of Surgery ---
Anesthesia Day of Surgery - Day of Surgery Patient Examined: Yes Patient H&P Reviewed: Yes Patient is NPO: Yes
[2019-08-30] MEDS ORDERED: PROTAMINE SULFATE 50 MG/5 ML INJ ONE (12:26)
[2019-08-30] MEDS ORDERED: HEPARIN 10,000 UNITS/10 ML VIAL ONE (12:27)
[2019-08-30] MEDS ORDERED: SODIUM CHLORIDE 0.9% 250ML 250 ML ONE (12:27)
[2019-08-30] MEDS ORDERED: THROMBIN (RECOMBINANT) 5,000 UNIT VIAL TP ONE ×2 (12:28→13:34)
[2019-08-30] MEDS ORDERED: GELATIN SPONGE SIZE 100 TP ONE (12:28)
[2019-08-30] MEDS ORDERED: fentaNYL 100 MCG/2 ML INJ ONE ×2 (12:42→14:57)
[2019-08-30] MEDS ORDERED: PROPOFOL 200 MG/20 ML VIAL IV ONE (12:42)
[2019-08-30] MEDS ORDERED: LIDOCAINE MPF (2%) 20 MG/1 ML VIAL 5 ML ONE (12:42)
[2019-08-30] MEDS ORDERED: dexAMETHasone 20 MG/5 ML VIAL ONE (13:00)
[2019-08-30] MEDS ORDERED: HEPARIN 10,000 UNITS/10 ML VIAL IR ONE (13:30)
[2019-08-30] MEDS ORDERED: SODIUM CHLORIDE 0.9% IRR 1,500 ML BOTTLE IR ONE ×2 (13:30→13:33)
--- NOTE | 2019-08-30 14:40 | Post Operative Note ---
Pre-op diagnosis: ESRD Post-op diagnosis: same Procedure: 1. Left Arm AV Graft Insertion 2. Left Arm AV Fistula Ligation Anesthesia: GETA Surgeon: GAMAL ROSENBERG Estimated blood loss: other (25ml) Pathology: none Condition: stable Disposition: PACU
[2019-08-30] MEDS ORDERED: oxyCODONE /ACETAMINOPHEN 5-325MG TAB PO PRN (14:41)
--- NOTE | 2019-08-30 14:43 | Short Stay Summary ---
Short Stay Documentation Date of service: 08/30/19 - History Principal diagnosis: ESRD Past Medical History: ESRD - Allergies and Medications Current Medications: Allergies codeine Adverse Reaction (Verified 03/12/16 21:45) Hives Home Medications Medication Instructions Recorded Confirmed Last Taken Type Acetaminophen [Shake That Ache] 500 mg PO Q6H PRN 03/13/16 08/30/19 08/29/19 09:00 History Aspirin [Adult Low Dose Aspirin EC] 81 mg PO QAM 03/13/16 08/28/19 08/23/19 08:00 History Lisinopril [Zestril TAB] 10 mg PO QDAY 07/12/19 08/30/19 08/30/19 06:00 History Promethazine [Phenergan] 25 mg PO Q8HR PRN 07/12/19 08/28/19 08/25/19 History Active Medications Cefazolin Sodium (Ancef/Sterile Water 2 Gm/20 Ml) 2 gm IV PREOP NR Stop: 08/30/19 23:00 Sodium Chloride (Nacl 0.9% 1000 Ml) 1,000 mls @ 42 mls/hr IV DIRECT ML Last Admin: 08/30/19 09:45 Dose: 42 mls/hr Documented by: - Physical exam General appearance: no acute distress Extremities: no ischemia - Hospital course Hospital course: the patient was taken to the operating room and had a left arm av graft insertion performed. please refer to the operative note concerning details of the procedure. the patient tolerated the procedure well and was discharged home in stable condition. - Disposition Condition at discharge: Stable Disposition: [id number]-01 TO HOME OR SELFCARE - Discharge Diagnoses (1) ESRD (end stage renal disease) on dialysis Status: Acute Short Stay Discharge Plan Follow up with: RACHEL FANG MD [Primary Care Provider] - 7 Days
[2019-08-30] MEDS: fentaNYL 100 MCG/2 ML INJ IV PRN ×4 (14:50→15:45)
[2019-08-30] MEDS ORDERED: ONDANSETRON 4 MG/2 ML INJ ONE (15:46)
[2019-08-30] MEDS ORDERED: ONDANSETRON 4 MG/2 ML INJ IV PRN (15:51)
[2019-08-30] MEDS ORDERED: HEPARIN 10,000 UNIT/1 ML VIAL IV ONE (16:16)
--- NOTE | 2019-08-30 16:21 | Operative Report ---
STAFF SURGEON: Dr. Girish Hernandez. PREOPERATIVE DIAGNOSIS: End-stage renal disease. POSTOPERATIVE DIAGNOSIS: End-stage renal disease. PROCEDURE PERFORMED: 1. Left arm AV graft insertion. 2. Left arm AV fistula ligation. COMPLICATIONS: None. ESTIMATED BLOOD LOSS: 25 mL. ANESTHESIA: General. INDICATIONS FOR PROCEDURE: This is a 73-year-old female with end-stage renal disease, on hemodialysis, currently through a right IJ PermCath due to a malfunctioning left arm AV fistula despite multiple attempts at salvage. Therefore, it was felt that the patient would benefit from a new access in the left upper extremity. The patient was explained the risks, benefits, and alternatives of procedure, expressed understanding and wished to proceed. DESCRIPTION OF PROCEDURE: After appropriate consent was obtained, the patient was brought back to the operating room and placed on the operating table in supine position with left arm extended. The patient was given appropriate medication for general anesthesia and LMA placed without difficulty. The left arm was prepped and draped in the sterile fashion with ChloraPrep. Appropriate preoperative antibiotics were administered. Appropriate timeout was performed indicating correct patient, procedure, and site of the procedure. Then, we began the operation by making a longitudinal incision near the antecubital fossa. This was carried through subcutaneous tissue with a combination of blunt dissection and electrocautery. Dissection was continued through the bicipital aponeurosis, allowed to expose the brachial artery at this level, which was found to be suitable for arterial inflow and was mobilized for appropriate distance, both proximally and distally, and proceeded to make a transverse incision near the axilla. This was carried through subcutaneous tissue with a combination of blunt dissection and electrocautery. Dissection was continued through the aponeurosis overlying the axillary and neurovascular bundle. The axillary vein was identified and found to be suitable for venous outflow, was mobilized for appropriate distance both proximally and distally. We then proceeded to create a subcutaneous tunnel between the two incision sites bringing through a 4-7 mm Propaten graft. The patient was given 5000 units of unfractionated heparin. After appropriate time elapsed, the graft was appropriately spatulated. Vascular clamps were placed on the brachial artery, both proximally and distally. Longitudinal arteriotomy was made with the 11 blade and extended with Burton scissors. An end-to-side anastomosis was then performed with a running 6-0 Prolene suture. Once complete, flow was established through the graft, we had a nice pulsatile flow. I then proceeded to cut the graft to appropriate length. Vascular clamps were then placed on the axillary vein, both proximally and distally. Longitudinal venotomy was made with a #11 blade and extended with Burton scissors and I then proceeded to perform an end-to-side anastomosis with a running 5-0 Prolene suture. Once complete, flow was reestablished through the graft with a nice palpable thrill. The patient was then given protamine for heparinization reversal and then looked to obtain hemostasis along the suture lines with hemostatic agents. Once that was complete, we then proceeded to make a transverse incision over the patient's previous brachiocephalic AV fistula near the antecubital fossa. This was then carried through subcutaneous tissue with a combination of blunt dissection and electrocautery. The fistula was mobilized at this level. We then proceeded to bringing through 0 silk sutures x 2 and ligated the AV fistula. Once that was completed, I then proceeded to close all the wounds with a deep subcutaneous layer with interrupted 3-0 PDS and the skin was approximated with fatuma. Appropriate dressing was placed. The patient tolerated the procedure well, emerged from the general anesthesia, the LMA removed and he was sent to recovery in stable condition. All the sponges, instrument, and needle counts were correct at completion of the operation. JOB# [id number] MORGAN/PORTIA
[2019-08-30 16:50] VITALS: BP 145/57
--- NOTE | 2019-08-30 21:09 | Post Anesthesia Evaluation ---
- Post Anesthesia Evaluation Patient Participated: Yes Airway Patent: Yes Stable Respiratory Function: Yes Nausea/Vomiting: No Temp > 96.8F: Yes Pain Manageable: Yes Adequeate Hydration: Yes Anesthesia Complications: No Block Receding Appropriately: Not Applicable Patient on Ventilator: No
== END 2019-08-30 08:09 | disposition home or self-care (01) ==
LOC: OR 08:08
PROVIDERS: ATTEND Surgery Vascular Surgery
DX: I12.0 Hypertensive chronic kidney disease with stage 5 chronic kidney disease or end stage renal disease (principal); E11.22 Type 2 diabetes mellitus with diabetic chronic kidney disease; N18.6 End stage renal disease; E11.65 Type 2 diabetes mellitus with hyperglycemia; E11.42 Type 2 diabetes mellitus with diabetic polyneuropathy; I25.10 Atherosclerotic heart disease of native coronary artery without angina pectoris; M19.90 Unspecified osteoarthritis, unspecified site; E78.00 Pure hypercholesterolemia, unspecified; T82.590A Other mechanical complication of surgically created arteriovenous fistula, initial encounter; Z90.710 Acquired absence of both cervix and uterus; Z95.5 Presence of coronary angioplasty implant and graft; Z87.440 Personal history of urinary (tract) infections; Z88.5 Allergy status to narcotic agent; Z98.49 Cataract extraction status, unspecified eye; Z98.890 Other specified postprocedural states; Z86.73 Personal history of transient ischemic attack (TIA), and cerebral infarction without residual deficits; Z86.2 Personal history of diseases of the blood and blood-forming organs and certain disorders involving the immune mechanism; Y83.8 Other surgical procedures as the cause of abnormal reaction of the patient, or of later complication, without mention of misadventure at the time of the procedure
CPT/HCPCS: 36415; 36830; 37607; 80048; 82962; A4649; C1768; J0690; J1100; J1644; J2405; J2704; J2720; J3010; J7030; J7050